=== PATIENT | male | born 1960 | race Caucasian/White ===

== ENCOUNTER 2022-12-13 09:38 | Emergency (ER) | payer BC ==
[2022-12-13] MEDS ORDERED: EPINEPHrine 1:10,000 1 MG/10 ML Syringe IVPUSH ONE (10:02)
[2022-12-13] MEDS ORDERED: diphenhydrAMINE 50 MG/ML SDV IVPUSH ONE (10:03)
[2022-12-13] MEDS ORDERED: Sodium Chloride 0.9% 1,000 ML IV ONE (10:03)
[2022-12-13] MEDS ORDERED: EPINEPHrine 1 MG/ML SDV IM ONE (10:27)
== END 2022-12-13 11:43 | disposition home or self-care (01) ==
LOC: JP.ED 09:38
DX: T63.441A Toxic effect of venom of bees, accidental (unintentional), initial encounter (principal)
CPT/HCPCS: 96372; 96374; 99282; J0171; J1200; J7030; 99284